=== PATIENT | male | born 1940 | race Caucasian/White ===

== ENCOUNTER 2018-02-22 06:18 | Observation (INO) | payer MEDICARE, OTHER ==
[2018-02-22] MEDS ORDERED: Sodium Chloride 0.9% 1,000 ML IV STA (06:52)
--- NOTE | 2018-02-22 06:55 | ED PDOC ---
Syncope/Near Syncope/Dizziness Time Seen by Provider: 02/22/18 06:41 Chief Complaint (Nursing): Dizziness/Lightheaded Chief Complaint (Provider): Dizziness History Per: Patient History/Exam Limitations: no limitations Additional Complaint(s): 77yo male, with history of "prostate problem" and no other past medical history, states today when he woke up at 5am and sat up in his bed, he felt dizzy with associated nausea. Patient reports the room was spinning and he had an episode of vomiting. Patient called EMS and en route to the ER and in the ER, patient felt dizzy and had another episode of vomiting. He reports similar symptoms 2 months ago, which resolved spontaneously after 1 month. He currently denies any chest pain or shortness of breath but states he has chest pain yesterday. Patient did not have dinner or breakfast this morning, stating he did not have a good appetite. He denies any headache or recent illnesses. PMD: Dr. Rao Past Medical History Reviewed: Historical Data, Nursing Documentation, Vital Signs Vital Signs: Last Vital Signs Temp 97.9 F 02/22/18 06:29 Pulse 71 02/22/18 06:29 Resp 16 02/22/18 06:29 BP Pulse Ox 99 02/22/18 06:29 - Medical History Other PMH: prostate problem - Surgical History Surgical History: No Surg Hx - Family History Family History: States: No Known Family Hx - Home Medications Home Medications: Ambulatory Orders Medication Instructions Recorded Tamsulosin [Flomax] 0.4 mg PO DAILY 02/22/18 - Allergies Allergies/Adverse Reactions: Allergies Allergy/AdvReac Type Severity Reaction Status Date / Time No Known Allergies Allergy Verified 02/22/18 06:27 Review of Systems ROS Statement: Except As Marked, All Systems Reviewed And Found Negative Cardiovascular: Negative for: Chest Pain Respiratory: Negative for: Shortness of Breath Neurological: Positive for: Dizziness. Negative for: Headache Physical Exam - Reviewed Nursing Documentation Reviewed: Yes Vital Signs Reviewed: Yes - Physical Exam Appears: Positive for: Non-toxic (patient is cachectic appearing; chronically ill appearing.) Head Exam: Positive for: ATRAUMATIC, NORMAL INSPECTION, NORMOCEPHALIC Skin: Positive for: Normal Color Eye Exam: Positive for: Normal appearance, EOMI, PERRL. Negative for: Nystagmus Neck: Positive for: Normal, Supple Cardiovascular/Chest: Positive for: Regular Rate, Rhythm Respiratory: Positive for: Normal Breath Sounds Gastrointestinal/Abdominal: Positive for: Normal Exam, Soft Back: Positive for: Normal Inspection Extremity: Positive for: Normal ROM (FROM of all extremities.). Negative for: Pedal Edema Neurologic/Psych: Positive for: Alert, Oriented. Negative for: Motor/Sensory Deficits - Laboratory Results Result Diagrams: 02/23/18 04:20 02/23/18 04:20 - ECG O2 Sat by Pulse Oximetry: 99 (RA) Pulse Ox Interpretation: Normal Medical Decision Making Medical Decision Making: Assessment: 77yo male, presents to ED with dizziness, likely positional and lending towards peripheral vertigo. Patient appears malnourished and dehydrated Plan: * IV Fluids * Labs * EKG * Meclizine 50mg PM * Zofran 4mg IVP 0700 Patient signed out to Dr. Thomas pending labs, reassessment. Scribe Attestation: Documented by Iris Marina, acting as a scribe for Shady Barajas MD. Provider Scribe Attestation: All medical record entries made by the Scribe were at my direction and personally dictated by me. I have reviewed the chart and agree that the record accurately reflects my personal performance of the history, physical exam, medical decision making, and the department course for this patient. I have also personally directed, reviewed, and agree with the discharge instructions and disposition. Disposition - Clinical Impression Clinical Impression: Chest pain, Vertigo - Disposition Disposition: Transfer of Care Disposition Time: 07:00 Condition: STABLE Patient Signed Over To: Kristina Thomas Handoff Comments: pending workup and re-eval
[2018-02-22 07:13] LABS: BASO % 0.6 % (0.0-2.0); EOS # 0.1 K/uL (0.0-0.7); EOS % 1.9 % (0.0-4.0); HEMOGLOBIN 13.5 g/dL (12.0-18.0); LYMPH # 1.6 K/uL (1.0-4.3); LYMPH % 33.7 % (20.0-40.0); MEAN CELL VOLUME 90.8 fl (80.0-94.0); MEAN CORPUSCULAR HEMOGLOBIN 30.8 pg (27.0-31.0); MEAN CORPUSCULAR HGB CONC 33.9 g/dL (33.0-37.0); MEAN PLATELET VOLUME 9.1 fl (7.2-11.7); MONO # 0.4 K/uL (0.0-0.8); NEUT # 2.6 K/uL (1.8-7.0); NEUT % 55.8 % (50.0-75.0); NRBC % 0.1 % (0.0-0.0); RBC 4.4 Mil/uL (4.40-5.90); RED CELL DISTRIBUTION WIDTH 14.5 % (11.5-14.5); WHITE BLOOD COUNT 4.7 K/uL (4.8-10.8)
[2018-02-22 07:25] LABS: BLOOD UREA NITROGEN 16 mg/dl (9-20); CALCIUM 9.3 mg/dL (8.4-10.2); GFR NON-AFRICAN AMERICAN > 60
--- NOTE | 2018-02-22 07:40 | ED PDOC ---
- Laboratory Results Result Diagrams: 02/22/18 07:10 02/22/18 07:10 - ECG O2 Sat by Pulse Oximetry: 99 (RA) Pulse Ox Interpretation: Normal - Progress Re-evaluation Time: 10:13 Condition: Improved Medical Decision Making Medical Decision Makin:00 -Patient signed out to provider by Dr. Barajas pending labs and reevaluation. 10:[address] Rao, recommends placing in obs for chest pain. Disposition - Clinical Impression Clinical Impression: Chest pain, Vertigo - POA Present On Arrival: None - Disposition Disposition: Hospitalized as Observation Patient Disposition Time: 10:27 Condition: STABLE Forms: [facility] (Polish)
--- NOTE | 2018-02-22 09:05 | CT ---
Date of service: 02/22/2018 PROCEDURE: CT HEAD WITHOUT CONTRAST. HISTORY: Vertigo COMPARISON: None available. TECHNIQUE: Axial computed tomography images were obtained through the head/brain without intravenous contrast. Radiation dose: Total exam DLP = 713.16 mGy-cm. This CT exam was performed using one or more of the following dose reduction techniques: Automated exposure control, adjustment of the mA and/or kV according to patient size, and/or use of iterative reconstruction technique. FINDINGS: HEMORRHAGE: No intracranial hemorrhage. BRAIN: No mass effect or edema. Minimal diffuse age-appropriate cerebral atrophy. Mild chronic periventricular white matter ischemic change. No evidence of acute infarct. VENTRICLES: Unremarkable. No hydrocephalus. CALVARIUM: Unremarkable. PARANASAL SINUSES: Unremarkable as visualized. No significant inflammatory changes. MASTOID AIR CELLS: Unremarkable as visualized. No inflammatory changes. OTHER FINDINGS: None. IMPRESSION: No intracranial mass, hemorrhage or evidence of acute infarct. Mild age-appropriate involutional changes.
--- NOTE | 2018-02-22 14:35 | CARD ---
APPROVED REPORT Date of service: 02/22/2018 EKG Measurement Heart [id number] <Conclusion> Sinus rhythm with premature atrial complexes Otherwise normal ECG
[2018-02-22] MEDS ORDERED: Pneumococcal 23-Valent Vaccine IM ONE (17:10)
[2018-02-23 05:44] LABS: HEMOGLOBIN 12.2 g/dL (12.0-18.0); MEAN CELL VOLUME 90.9 fl (80.0-94.0); MEAN CORPUSCULAR HEMOGLOBIN 30.6 pg (27.0-31.0); MEAN CORPUSCULAR HGB CONC 33.6 g/dL (33.0-37.0); RED CELL DISTRIBUTION WIDTH 14.6 % (11.5-14.5); WHITE BLOOD COUNT 6.2 K/uL (4.8-10.8)
[2018-02-23 06:07] LABS: BLOOD UREA NITROGEN 21 mg/dl (9-20); CALCIUM 8.6 mg/dL (8.4-10.2); GFR NON-AFRICAN AMERICAN > 60
--- NOTE | 2018-02-23 07:38 | CP.PCM.HP ---
History of Present Illness - History of Present Illness History of Present Illness: CC: Dizziness History of Present Illness: A 77yo male, with history of "prostate problem" and no other past medical history, states today when he woke up at 5am and sat up in his bed, he felt dizzy with associated nausea. Patient reports the room was spinning and he had an episode of vomiting. Patient called EMS and en route to the ER and in the ER, patient felt dizzy and had another episode of vomiting. He reports similar symptoms 2 months ago, which resolved spontaneously after 1 month. He currently denies any chest pain or shortness of breath but states he has chest pain yesterday. Patient did not have dinner or breakfast this morning, stating he did not have a good appetite. He denies any headache or recent illnesses. Present on Admission - Present on Admission Any Indicators Present on Admission: No Review of Systems - Review of Systems All systems: reviewed and no additional remarkable complaints except Review of Systems: as Per HPI Past Patient History - Past Medical History & Family History Past Medical History?: Yes Past Family History: Reviewed and not pertinent - Past Social History Smoking Status: Never Smoked Alcohol: None Drugs: Denies - CARDIAC Hx Cardiac Disorders: No - PULMONARY Hx Respiratory Disorders: No - NEUROLOGICAL Hx Neurological Disorder: No - HEENT Hx HEENT Problems: No - MUSCULOSKELETAL/RHEUMATOLOGICAL Hx Falls: No - GENITOURINARY/GYNECOLOGICAL Hx Prostate Problems: Yes - PSYCHIATRIC Hx Substance Use: No - ANESTHESIA Hx Anesthesia: No Meds Home Medications: Home Medication List Medication Instructions Recorded Confirmed Type Meclizine HCl 25 mg PO Q8 PRN 30 Days #30 tablet 02/24/18 Rx Allergies/Adverse Reactions: Allergies Allergy/AdvReac Type Severity Reaction Status Date / Time No Known Allergies Allergy Verified 02/22/18 06:27 Physical Exam - Constitutional Appears: Well, No Acute Distress - Head Exam Head Exam: ATRAUMATIC, NORMAL INSPECTION, NORMOCEPHALIC - Eye Exam Eye Exam: EOMI, Normal appearance, PERRL Pupil Exam: NORMAL ACCOMODATION, PERRL - ENT Exam ENT Exam: Mucous Membranes Moist, Normal Exam - Neck Exam Neck exam: Positive for: Normal Inspection - Respiratory Exam Respiratory Exam: Clear to Auscultation Bilateral, NORMAL BREATHING PATTERN - Cardiovascular Exam Cardiovascular Exam: REGULAR RHYTHM, RRR, +S1, +S2 - GI/Abdominal Exam GI & Abdominal Exam: Normal Bowel Sounds, Soft. absent: Tenderness - Exam Speculum exam: NORMAL SPECULUM EXAM Bimanual exam: NORMAL BIMANUAL EXAM - Extremities Exam Extremities exam: Positive for: normal inspection - Back Exam Back exam: FULL ROM, NORMAL INSPECTION - Neurological Exam Neurological exam: Alert, CN II-XII Intact, Normal Gait, Oriented x3, Reflexes Normal - Psychiatric Exam Psychiatric exam: Normal Affect, Normal Mood - Skin Skin Exam: Dry, Intact, Normal Color, Warm Results - Vital Signs Recent Vital Signs: Last Vital Signs Temp 97.8 F 02/23/18 04:49 Pulse 50 L 02/23/18 04:49 Resp 18 02/23/18 04:49 BP 100/55 L 02/23/18 04:49 Pulse Ox 97 02/23/18 04:49 - Labs Result Diagrams: 02/23/18 04:20 02/23/18 04:20 Labs: Laboratory Results - last 24 hr 02/22/18 02/22/18 02/23/18 15:15 23:00 04:20 WBC 6.2 RBC 4.00 L Hgb 12.2 Hct 36.4 MCV 90.9 MCH 30.6 MCHC 33.6 RDW 14.6 H Plt Count 126 L Sodium Potassium Chloride Carbon Dioxide Anion Gap BUN Creatinine Est GFR ( Amer) Est GFR (Non-Af Amer) Random Glucose Calcium Troponin I < 0.0120 0.0160 TSH 3rd Generation 02/23/18 04:20 WBC RBC Hgb Hct MCV MCH MCHC RDW Plt Count Sodium 141 Potassium 4.1 Chloride 110 H Carbon Dioxide 29 Anion Gap 6 L BUN 21 H Creatinine 1.0 Est GFR ( Amer) > 60 Est GFR (Non-Af Amer) > 60 Random Glucose 85 Calcium 8.6 Troponin I TSH 3rd Generation 0.83 - EKG Data EKG shows normal: Sinus rhythm (63) - EKG Data EKG comments: Premature Atrial Contraction. - Imaging and Cardiology CT scan - head Status: Report reviewed by me Assessment & Plan (1) Chest pain Status: Acute (2) Dizziness Assessment and Plan: Bradycardia Vs Vertigo TTE Serial EKG & troonin IVF Neuro-check Tele-monitoring Cardiology Consult Status: Acute Priority: High (3) Bradycardia Assessment and Plan: HR upto 38-40 on the Monitor [facility] [employer] Technician Onboard Status: Acute Priority: High
[2018-02-23] MEDS: Enoxaparin 40 mg Syringe SC SCH (10:11)
--- NOTE | 2018-02-23 12:25 | CP.PCM.CON ---
History of Present Illness - History of Present Illness History of Present Illness: 77 y/o male admitted with Vertigo Pt claims that after sitting up in bed yesterday morning he felt dizzy and had an episode of vomiting Sx lasted ~ 1 hr Denies any Sx at present NO Chest pain/SOB/Vertigo admits to not eating well and not drinking fluids appears malnourished Troponin: neg EKG: NSR PMH: ? Prostate problem Past Patient History - Past Medical History & Family History Past Medical History?: Yes - Past Social History Smoking Status: Never Smoked - CARDIAC Hx Cardiac Disorders: No - PULMONARY Hx Respiratory Disorders: No - NEUROLOGICAL Hx Neurological Disorder: No - HEENT Hx HEENT Problems: No - MUSCULOSKELETAL/RHEUMATOLOGICAL Hx Falls: No - GENITOURINARY/GYNECOLOGICAL Hx Prostate Problems: Yes - PSYCHIATRIC Hx Substance Use: No - ANESTHESIA Hx Anesthesia: No Meds Allergies/Adverse Reactions: Allergies Allergy/AdvReac Type Severity Reaction Status Date / Time No Known Allergies Allergy Verified 02/22/18 06:27 - Medications Medications: Current Medications Enoxaparin Sodium (Lovenox) 40 mg SC DAILY [facility]; Protocol Last Admin: 02/23/18 10:11 Dose: 40 mg Tamsulosin HCl (Flomax) 0.4 mg PO DAILY [facility] Last Admin: 02/23/18 10:10 Dose: 0.4 mg Physical Exam - Constitutional Appears: Cachectic - Head Exam Head Exam: NORMAL INSPECTION - Eye Exam Eye Exam: Normal appearance - ENT Exam ENT Exam: Normal Exam - Neck Exam Neck exam: Positive for: Normal Inspection - Respiratory Exam Respiratory Exam: NORMAL BREATHING PATTERN - Cardiovascular Exam Cardiovascular Exam: REGULAR RHYTHM Results - Vital Signs Recent Vital Signs: Last Vital Signs Temp 97.6 F 02/23/18 08:52 Pulse 48 L 02/23/18 08:52 Resp 20 02/23/18 08:52 BP 117/68 02/23/18 08:52 Pulse Ox 97 02/23/18 08:52 - Labs Result Diagrams: 02/23/18 04:20 02/23/18 04:20 Labs: Laboratory Results - last 24 hr 02/22/18 02/22/18 02/23/18 15:15 23:00 04:20 WBC 6.2 RBC 4.00 L Hgb 12.2 Hct 36.4 MCV 90.9 MCH 30.6 MCHC 33.6 RDW 14.6 H Plt Count 126 L Sodium Potassium Chloride Carbon Dioxide Anion Gap BUN Creatinine Est GFR ( Amer) Est GFR (Non-Af Amer) Random Glucose Calcium Troponin I < 0.0120 0.0160 TSH 3rd Generation 02/23/18 04:20 WBC RBC Hgb Hct MCV MCH MCHC RDW Plt Count Sodium 141 Potassium 4.1 Chloride 110 H Carbon Dioxide 29 Anion Gap 6 L BUN 21 H Creatinine 1.0 Est GFR ( Amer) > 60 Est GFR (Non-Af Amer) > 60 Random Glucose 85 Calcium 8.6 Troponin I TSH 3rd Generation 0.83 Assessment & Plan (1) Bradycardia Assessment and Plan: Pt HR 50 - 65 does not seem to be the cause of Vertigo Status: Acute (2) Vertigo Status: Acute
--- NOTE | 2018-02-23 13:12 | CARD ---
APPROVED REPORT Date of service: 02/23/2018 EXAM: Two-dimensional and M-mode echocardiogram with Doppler and color Doppler. Other Information Quality : GoodRhythm : NSR INDICATION Dizziness and Vertigo Chest Pain 2D DIMENSIONS IVSd0.89 (0.7-1.1cm)LVDd4.56 (3.9-5.9cm) LVOT Diameter2.00 (1.8-2.4cm)PWd0.81 (0.7-1.1cm) IVSs0.92 (0.8-1.2cm)LVDs3.55 (2.5-4.0cm) FS (%) 22.2 %PWs1.01 (0.8-1.2cm) LVEF (%)52.0 (>50%) M-Mode DIMENSIONS Left Atrium (MM)4.03 (2.5-4.0cm)IVSd0.68 (0.7-1.1cm) Aortic Root3.47 (2.2-3.7cm)LVDd6.35 (4.0-5.6cm) Aortic Cusp Exc.2.00 (1.5-2.0cm)PWd0.74 (0.7-1.1cm) IVSs0.94 cmFS (%) 29 % LVDs4.50 (2.0-3.8cm)PWs1.15 cm Aortic Valve AoV Peak Hmqpfpfp631.7cm/sAoV VTI23.6cmAO Peak GR.4mmHg LVOT Peak Tkttnyym62.1cm/sLVOT VTI18.28cmAO Mean GR.2mmHg CATHIE (VMAX)1.38jo6OKU (VTI)1.38cm2 Mitral Valve MV E Mnmntlny94.3cm/sMV DECEL [id number] A Hruacdhg63.7cm/s MV QCI05usS/A ratio1.8MVA (PHT)3.77cm2 TDI Lateral E' Peak V20.04cm/sMedial E' Peak V8.96cm/sE/Lateral E'3.3 E/Medial E'7.3 Pulmonary Valve PV Peak Vtijjpjn50.0cm/s Tricuspid Valve TR Peak Eagbijzo311td/sRAP NJSTIVWV32qfYiSP Peak Gr.25mmHg VAVI13esJv LEFT VENTRICLE The left ventricle is normal size. There is normal left ventricular wall thickness. The left ventricular systolic function is normal. The estimated ejection fraction is 50-55%. Calculated EF 52%. No regional wall motion abnormalities noted.. The left ventricular diastolic function is normal. No left ventricle thrombus noted on this study. There is no ventricular septal defect visualized. There is no left ventricular aneurysm. There is no mass noted in the left ventricle. RIGHT VENTRICLE The right ventricle is normal size. There is normal right ventricular wall thickness. The right ventricular systolic function is normal. ATRIA The left atrium is mildly dilated. The right atrium size is normal. The interatrial septum is intact with no evidence for an atrial septal defect. AORTIC VALVE The aortic valve is normal in structure. No aortic regurgitation is present. There is no aortic valvular stenosis. There is no aortic valvular vegetation. MITRAL VALVE The mitral valve is normal in structure. There is no evidence of mitral valve prolapse. There is no mitral valve stenosis. Mitral regurgitation is trace to mild. TRICUSPID VALVE The tricuspid valve is normal in structure. There is mild to moderate tricuspid regurgitation. RVSP is 30 mm Hg. There is no tricuspid valve prolapse or vegetation. There is no tricuspid valve stenosis. PULMONIC VALVE The pulmonary valve is normal in structure. There is no pulmonic valvular regurgitation. There is no pulmonic valvular stenosis. GREAT VESSELS The aortic root is normal in size. The ascending aorta is normal in size. The pulmonary artery is normal. The IVC is normal in size and collapses >50% with inspiration. PERICARDIAL EFFUSION There is no pericardial effusion. There is no pleural effusion. <Conclusion> The estimated ejection fraction is 50-55%. Calculated EF 52%. The left ventricular diastolic function is normal. The left atrium is mildly dilated. Mitral regurgitation is trace to mild. There is mild to moderate tricuspid regurgitation. RVSP is 30 mm Hg.
--- NOTE | 2018-02-23 23:14 | CP.PCM.PN ---
Subjective - Date & Time of Evaluation Date of Evaluation: 02/23/18 Time of Evaluation: 18:30 - Subjective Subjective: Seen and examined at the bed side. Feeling better but continue to feel dizzy on and off. +Bradycardia on Telemetry. Local Driver to evalute the patient. Objective - Vital Signs/Intake and Output Vital Signs (last 24 hours): Temp Pulse Resp BP Pulse Ox 98.3 F 55 L 16 122/70 97 02/23/18 19:52 02/23/18 19:52 02/23/18 19:52 02/23/18 19:52 02/23/18 19:52 - Medications Medications: Current Medications Enoxaparin Sodium (Lovenox) 40 mg SC DAILY [facility]; Protocol Last Admin: 02/23/18 10:11 Dose: 40 mg Tamsulosin HCl (Flomax) 0.4 mg PO DAILY [facility] Last Admin: 02/23/18 10:10 Dose: 0.4 mg - Labs Labs: 02/23/18 04:20 02/23/18 04:20 - Constitutional Appears: Well, No Acute Distress - Head Exam Head Exam: ATRAUMATIC, NORMAL INSPECTION, NORMOCEPHALIC - Eye Exam Eye Exam: EOMI, Normal appearance, PERRL Pupil Exam: NORMAL ACCOMODATION, PERRL - ENT Exam ENT Exam: Mucous Membranes Moist, Normal Exam - Neck Exam Neck Exam: Full ROM, Normal Inspection. absent: Lymphadenopathy - Respiratory Exam Respiratory Exam: Clear to Ausculation Bilateral, NORMAL BREATHING PATTERN - Cardiovascular Exam Cardiovascular Exam: REGULAR RHYTHM, +S1, +S2. absent: Murmur - GI/Abdominal Exam GI & Abdominal Exam: Soft, Normal Bowel Sounds. absent: Tenderness - Extremities Exam Extremities Exam: Full ROM, Normal Capillary Refill, Normal Inspection. absent: Joint Swelling, Pedal Edema - Back Exam Back Exam: NORMAL INSPECTION - Neurological Exam Neurological Exam: Alert, Awake, CN II-XII Intact, Normal Gait, Oriented x3 - Psychiatric Exam Psychiatric exam: Normal Affect, Normal Mood - Skin Skin Exam: Dry, Intact, Normal Color, Warm Assessment and Plan (1) Chest pain Assessment & Plan: ACS ruled out Status: Acute (2) Dizziness Assessment and Plan: Bradycardia Vs Vertigo TTE- EF 52-55%, TV Mild-Mod Regurgitation,RVSP 30 mmhg Serial EKG & troonin- Negative IVF Neuro-check Tele-monitoring- Bradycardia Cardiology Consulted Status: Acute Priority: High (3) Bradycardia Assessment and Plan: HR upto 38-40 on the Monitor TSH- Normal Local Driver Onboard Status: Acute
[2018-02-24 08:17] VITALS: O2SAT 96
[2018-02-24] MEDS: Enoxaparin 40 mg Syringe SC SCH (08:44)
[2018-02-24 12:37] VITALS: TEMP 98.1
[2018-02-24 16:44] VITALS: BP 110/66; PULSE 66; RESP 18
--- NOTE | 2018-02-24 21:38 | CP.PCM.DIS ---
Provider - Provider Date of Admission: 02/22/18 10:30 Attending physician: Leti Marino MD Time Spent in preparation of Discharge (in minutes): 25 Diagnosis - Discharge Diagnosis (1) Chest pain Status: Acute (2) Dizziness Status: Acute (3) Bradycardia Status: Acute Hospital Course - Lab Results Lab Results: Most Recent Lab Values WBC 6.2 K/uL (4.8-10.8) 02/23/18 04:20 RBC 4.00 Mil/uL (4.40-5.90) L 02/23/18 04:20 Hgb 12.2 g/dL (12.0-18.0) 02/23/18 04:20 Hct 36.4 % (35.0-51.0) 02/23/18 04:20 MCV 90.9 fl (80.0-94.0) 02/23/18 04:20 MCH 30.6 pg (27.0-31.0) 02/23/18 04:20 MCHC 33.6 g/dL (33.0-37.0) 02/23/18 04:20 RDW 14.6 % (11.5-14.5) H 02/23/18 04:20 Plt Count 126 K/uL (130-400) L 02/23/18 04:20 MPV 9.1 fl (7.2-11.7) 02/22/18 07:10 Neut % (Auto) 55.8 % (50.0-75.0) 02/22/18 07:10 Lymph % (Auto) 33.7 % (20.0-40.0) 02/22/18 07:10 [place] % (Auto) 8.0 % (0.0-10.0) 02/22/18 07:10 Eos % (Auto) 1.9 % (0.0-4.0) 02/22/18 07:10 Baso % (Auto) 0.6 % (0.0-2.0) 02/22/18 07:10 Neut # (Auto) 2.6 K/uL (1.8-7.0) 02/22/18 07:10 Lymph # (Auto) 1.6 K/uL (1.0-4.3) 02/22/18 07:10 [place] # (Auto) 0.4 K/uL (0.0-0.8) 02/22/18 07:10 Eos # (Auto) 0.1 K/uL (0.0-0.7) 02/22/18 07:10 Baso # (Auto) 0.0 K/uL (0.0-0.2) 02/22/18 07:10 Sodium 141 mmol/l (132-148) 02/23/18 04:20 Potassium 4.1 MMOL/L (3.6-5.0) 02/23/18 04:20 Chloride 110 mmol/L (98-107) H 02/23/18 04:20 Carbon Dioxide 29 mmol/L (22-30) 02/23/18 04:20 Anion Gap 6 (10-20) L 02/23/18 04:20 BUN 21 mg/dl (9-20) H 02/23/18 04:20 Creatinine 1.0 mg/dl (0.8-1.5) 02/23/18 04:20 Est GFR ( Amer) > 60 02/23/18 04:20 Est GFR (Non-Af Amer) > 60 02/23/18 04:20 Random Glucose 85 mg/dL (75-110) 02/23/18 04:20 Calcium 8.6 mg/dL (8.4-10.2) 02/23/18 04:20 Troponin I 0.0160 ng/mL (0.00-0.120) 02/22/18 23:00 TSH 3rd Generation 0.83 mIU/ML (0.46-4.68) 02/23/18 04:20 Discharge Exam - Head Exam Head Exam: ATRAUMATIC, NORMAL INSPECTION, NORMOCEPHALIC Discharge Plan - Discharge Medications Prescriptions: Meclizine HCl 25 mg PO Q8 PRN 30 Days #30 tablet PRN Reason: Dizziness - Follow Up Plan Condition: STABLE Disposition: HOME/ ROUTINE Additional Instructions: follow up with private doctor next week.
== END 2018-02-24 17:20 | disposition home or self-care (01) ==
LOC: H.ER 06:18 → H.ERHOLD 10:30 → H.TEL 15:39
PROVIDERS: ADMIT Internal Medicine; ATTEND Internal Medicine
DX: R00.1 Bradycardia, unspecified (principal); R07.9 Chest pain, unspecified; E86.0 Dehydration; E46 Unspecified protein-calorie malnutrition; H81.399 Other peripheral vertigo, unspecified ear; Z23 Encounter for immunization
CPT/HCPCS: 36415; 70450; 80048; 84443; 84484; 85025; 85027; 90732; 93005; 93306; 96374; 97116; 97161; 99285; G0009; G0378; G8978; G8979; G8980; J1650; J2405; J7030